=== PATIENT | female | born 1990 | race African-American/Black ===

== ENCOUNTER 2020-04-12 17:27 | Emergency (ER) | payer OTHER ==
[~2020-04-12] VITALS: Ht 172.7 cm; Wt 69.0 kg
[2020-04-12 18:44] VITALS: BP 136/88
[2020-04-12] MEDS ORDERED: IBUP-1007 PO (18:58)
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
== END 2020-04-12 19:12 | disposition home or self-care (01) ==
LOC: ER 17:27
DX: M54.2 Cervicalgia (principal); M54.5 Low back pain; G89.11 Acute pain due to trauma; V49.9XXA Car occupant (driver) (passenger) injured in unspecified traffic accident, initial encounter; Y93.89 Activity, other specified; Y92.89 Other specified places as the place of occurrence of the external cause; Y99.8 Other external cause status
CPT/HCPCS: 99282